=== PATIENT | male | born 1960 | race Caucasian/White ===

== ENCOUNTER 2017-08-25 12:27 | Inpatient (IN) | payer OTHER ==
[~2017-08-25] VITALS: Ht 162.6 cm; Wt 88.5 kg
[~2017-08-25 12:27] MED LIST: CLONAZEPAM1 MG PO; DIOVAN PO; GABAPENTIN600 MG PO; RELAFEN PO
[2017-08-25] MEDS ORDERED: ZANTAC150 M3 PO (14:08)
[2017-09-09] MEDS ORDERED: DOCUSATE SODIU100 MG PO (12:46)
[2017-09-09] MEDS ORDERED: PERCOCET 5-3251 EACH PO (12:47)
[2017-09-09] MEDS ORDERED: CLONAZEPAM1 MG PO (12:47)
== END 2017-09-09 15:13 | disposition home or self-care (01) | DRG 454 ==
LOC: O/R 09-08 04:45 → PED 09-08 04:45 → SURG 09-08 07:00 → PED 09-08 10:20 → SURG 09-08 13:45 → PED 09-09 15:13
PROVIDERS: Orthopaedic Surgery Orthopaedic Surgery of the Spine
PROC: 0RG20A0 Fusion of 2 or more Cervical Vertebral Joints with Interbody Fusion Device, Anterior Approach, Anterior Column, Open Approach (ICD-10-PCS; 2017-09-08)
PROC: 0RG2071 Fusion of 2 or more Cervical Vertebral Joints with Autologous Tissue Substitute, Posterior Approach, Posterior Column, Open Approach (ICD-10-PCS; 2017-09-08)
PROC: 07DS3ZZ Extraction of Vertebral Bone Marrow, Percutaneous Approach (ICD-10-PCS; 2017-09-08)
PROC: 0RT30ZZ Resection of Cervical Vertebral Disc, Open Approach (ICD-10-PCS; principal; 2017-09-08 07:00)
DX: M50.021 Cervical disc disorder at C4-C5 level with myelopathy (principal); M47.12 Other spondylosis with myelopathy, cervical region; I10 Essential (primary) hypertension

== ENCOUNTER 2018-03-08 11:00 | Inpatient (IN) | payer OTHER ==
[~2018-03-08] VITALS: Ht 162.6 cm; Wt 88.5 kg
[~2018-03-08 11:00] MED LIST changes: +DOCUSATE SODIU100 MG PO; +MELATONIN10 MG; +NABUMETONE750 MG PO; +PERCOCET 5-3251 EACH PO; +ZANTAC150 M3 PO
[2018-03-10] MEDS ORDERED: COLACE100 MG PO (09:39)
[2018-03-10] MEDS ORDERED: NEURONTIN800 MG PO (09:40)
[2018-03-10] MEDS ORDERED: CIPROFLOXACIN750 MG PO ×2 (09:40→09:42)
[2018-03-10] MEDS ORDERED: CLONAZEPAM1 MG PO (09:41)
[2018-03-10] MEDS ORDERED: PERCOCET 5-3251 EACH PO (09:41)
== END 2018-03-11 15:29 | disposition home or self-care (01) | DRG 455 ==
LOC: O/R 03-10 05:05 → PED 03-10 05:05 → SURH 03-10 07:00 → PED 03-10 13:54
PROVIDERS: Orthopaedic Surgery Orthopaedic Surgery of the Spine
PROC: 0SG0071 Fusion of Lumbar Vertebral Joint with Autologous Tissue Substitute, Posterior Approach, Posterior Column, Open Approach (ICD-10-PCS; 2018-03-10)
PROC: 0ST20ZZ Resection of Lumbar Vertebral Disc, Open Approach (ICD-10-PCS; 2018-03-10)
PROC: 0SG00AJ Fusion of Lumbar Vertebral Joint with Interbody Fusion Device, Posterior Approach, Anterior Column, Open Approach (ICD-10-PCS; 2018-03-10)
PROC: 07DS3ZZ Extraction of Vertebral Bone Marrow, Percutaneous Approach (ICD-10-PCS; 2018-03-10)
PROC: 0SG00A0 Fusion of Lumbar Vertebral Joint with Interbody Fusion Device, Anterior Approach, Anterior Column, Open Approach (ICD-10-PCS; principal; 2018-03-10 07:00)
DX: M48.061 Spinal stenosis, lumbar region without neurogenic claudication (principal); M43.16 Spondylolisthesis, lumbar region; M51.16 Intervertebral disc disorders with radiculopathy, lumbar region; I10 Essential (primary) hypertension